=== PATIENT | female | born 1940 | race Caucasian/White ===

== ENCOUNTER 2021-09-08 17:59 | Inpatient (IN) | payer OTHER ==
[~2021-09-08] VITALS: Ht 152.4 cm; Wt 79.8 kg
[2021-09-08] MEDS: PANTOPRAZOLE SODIUM 40 MG/VIAL (PROTONIX) IVP SCH (00:54)
[2021-09-08 18:04] VITALS: BP_SYST 141
--- NOTE | 2021-09-08 18:11 | NUR ---
PT BIB FAMILY FROM [facility] FOR LOWER MID ABD PAIN RADIATING TOWARDS BACK SINCE THIS AM W/ N/V X 1. PT DENIES ANY PAINFUL URINATION OR FEVERS. PT IS AMBULATORY, AAOX4, VSS
--- NOTE | 2021-09-08 18:11 | NUR ---
PT TRIAGED AND PLACED IN ED LOBBY FOR AVAILABLE BED IN MAIN ED, MADE AWARE OF MSE NEEDS. PT PROVIDED WITH SPECIMEN CUP FOR URINE SAMPLE
[2021-09-08 19:40] LABS: BASOPHILS # (AUTO) 0.1 K/uL (0.0-0.2); BASOPHILS % (AUTO) 0.7 % (0.0-2.0); EOSINOPHILS # (AUTO) 0.1 K/uL (0.0-0.4); EOSINOPHILS % (AUTO) 1.5 % (0.0-4.0); HEMATOCRIT 34.3 % (36-48); HEMOGLOBIN 11.5 g/dL (12.0-16.0); LYMPHOCYTES # (AUTO) 1.5 K/uL (1.0-5.5); LYMPHOCYTES % (AUTO) 17.3 % (20.5-51.5); MEAN CORPUSCULAR HEMOGLOBIN 31 pg (27-31); MEAN CORPUSCULAR HGB CONC 33 % (32-36); MEAN CORPUSCULAR VOLUME 92 fL (79.0-98.0); MONOCYTES # (AUTO) 1.1 K/uL (0.0-1.0); MONOCYTES % (AUTO) 12.9 % (1.7-9.3); NEUTROPHILS # (AUTO) 5.8 K/uL (1.8-7.7); NEUTROPHILS % (AUTO) 67.6 % (40.0-70.0); PLATELET COUNT (AUTO) 189 K/uL (130-430); RED BLOOD CELL COUNT(AUTO) 3.75 MIL/uL (4.2-6.2); RED CELL DISTRIBUTION WIDTH 15.5 % (9.0-15.0); WHITE BLOOD COUNT (AUTO) 8.6 K/uL (4.8-10.8)
[2021-09-08 20:09] LABS: ANION GAP 10 (5-15); CALCIUM 9.4 mg/dL (8.4-11.0); CHLORIDE 100 mmol/L (98-107); CREATININE 2.02 mg/dL (0.55-1.30); GLUCOSE 160 mg/dL (70-99); POTASSIUM 3.9 mmol/L (3.5-5.1); SODIUM SERUM 138 mmol/L (136-145); UREA NITROGEN, BLOOD 63 mg/dL (8-21)
[2021-09-08 20:16] LABS: ALANINE AMINOTRANSFERASE 20 U/L (12-78); ALBUMIN 2.7 g/dL (3.4-4.8); ASPARTATE AMINOTRANSFERASE 35 U/L (10-37)
[2021-09-08 20:22] LABS: PROTHROMBIN TIME 10.3 SECS (9.5-12.5)
[2021-09-08 20:39] LABS: TOTAL BILIRUBIN 0.8 mg/dL (0.0-1.0)
[2021-09-08] MEDS ORDERED: PANTOPRAZOLE SODIUM 40 MG/VIAL (PROTONIX) IVP ONE (21:45)
[2021-09-08] MEDS ORDERED: PANTOPRAZOLE SODIUM 40 MG in NS 50 ML IV SCH (21:45)
--- NOTE | 2021-09-08 22:43 | NUR ---
PT IN BED WITH RAIL UP AND BED LOCKED. PT VS ARE WITHIN NORMAL LIMIT. PT IS AOX1 NAME ONLY. WILL CONTINUE TO MONITOR
[2021-09-08] MEDS ORDERED: ALBUTEROL SULFATE 0.083% 2.5 MG/3 ML VIAL.NEB INH PRN (22:45)
[2021-09-08] MEDS ORDERED: ONDANSETRON HCL 4 MG/2 ML VIAL IVP PRN (22:45)
[2021-09-08] MEDS ORDERED: ACETAMINOPHEN 325 MG TABLET PO PRN (22:45)
[2021-09-08] MEDS: NACL 0.9% 1,000 ML IV SCH (23:08)
[2021-09-08] MEDS ORDERED: PANTOPRAZOLE SODIUM 40 MG/VIAL (PROTONIX) ONE (23:17)
[2021-09-08] MEDS ORDERED: HALOPERIDOL LACTATE 5 MG/ML VIAL IVP ONE (23:45)
[2021-09-08] MEDS ORDERED: DIPHENHYDRAMINE INJ 50 MG/ML VIAL IVP ONE (23:45)
[2021-09-08] MEDS ORDERED: LORazepam 2 MG/ML VIAL IVP ONE (23:45)
[2021-09-09] MEDS: MORPHINE 2 MG/ML INJ. SYRINGE IVP PRN ×2 (00:03→20:26)
--- NOTE | 2021-09-09 01:52 | NUR ---
PATIENT FOUND WITH BLOOD PRESSURE OF 80/51. DR. GUI ROSAS. WILL PLACE NEW ORDERS AND WILL BE CARRIED OUT. Addendum: 09/09/21 at 0157 by [email or web address] PRIMARY NURSE NOTIFIED
[2021-09-09] MEDS ORDERED: NALOXONE HCL 0.4 MG/ML AMP (NARCAN) IVP ONE (02:00)
[2021-09-09] MEDS ORDERED: PANTOPRAZOLE SODIUM 40 MG in NS 50 ML IV ONE (02:15)
--- NOTE | 2021-09-09 02:20 | NUR ---
# 20 gauge angiocath placed to RIGHT HAND. Use of asceptic technique. Opsite placed over site. Blood return noted. Flushed with 10 cc of normal saline. No evidence of infiltration noted. Patient tolerated well.
--- NOTE | 2021-09-09 02:36 | NUR ---
COVID SWAB OBTAINED AND SENT TO LAB
[2021-09-09 03:26] VITALS: BP_SYST 148
--- NOTE | 2021-09-09 03:59 | NUR ---
Patient will be admitted to care of Dr Main. Admitted to unit. Will go to room . Belongings list completed. Complete and up to date summary report printed. SBAR report called in and spoke with Tami MAS with opportunity for questions.
--- NOTE | 2021-09-09 03:59 | NUR ---
ADMIT NOTE Received pt from ER to the floor with a diagnosis of GI bLeed. Admission process initiated. patient oriented to pain management, safety and call light-teach back done. ELIZABETH
[2021-09-09 04:11] VITALS: BP_SYST 117
[2021-09-09] MEDS: NACL 0.9% 1,000 ML IV SCH (04:35)
--- NOTE | 2021-09-09 04:53 | NUR ---
admission, pictures, IVF Admit process done, inventory completed, wound pictures taken. IVF hung and infusing via left wrist, no s/sx of infiltration. Safety precaution in place
--- NOTE | 2021-09-09 05:05 | NUR ---
CONSULT: CONSULT CALLED FOR DR. GIRISH VAZQUEZ IS PEDIATRICS PHYSICIAN THIS MORNING I SPOKE TO [id number] REASON FOR CONSULT: GI BLEEDING REQUESTING CONSULT: DR. STERN FITNESS PROFESSIONAL PHONE NUMBER: [phone]
[2021-09-09 08:28] VITALS: BP_SYST 134
[2021-09-09] MEDS: PANTOPRAZOLE SODIUM 40 MG/VIAL (PROTONIX) IVP SCH ×2 (09:16→20:17)
[2021-09-09] MEDS ORDERED: BENZOCAINE 20% 0.5mL UD SPRAY MM ONE (09:33)
[2021-09-09] MEDS: MIDAZOLAM HCL 5 MG/5 ML VIAL ONE ×3 (09:51→09:58)
[2021-09-09] MEDS: fentaNYL CITRATE/PF 100 MCG/2 ML AMP ONE ×3 (09:51→09:58)
[2021-09-09] MEDS ORDERED: PIPERACILLIN/TAZO 3.375/DEX-IS 50 ML IV SCH (10:00)
[2021-09-09 11:32] VITALS: BP_SYST 120
[2021-09-09] MEDS: SUCRALFATE 1 GM/10 ML UDC GT SCH ×3 (12:08→20:17)
[2021-09-09 13:48] LABS: BASOPHILS # (AUTO) 0.1 K/uL (0.0-0.2); BASOPHILS % (AUTO) 0.8 % (0.0-2.0); EOSINOPHILS # (AUTO) 0.3 K/uL (0.0-0.4); EOSINOPHILS % (AUTO) 3.3 % (0.0-4.0); HEMATOCRIT 32.3 % (36-48); LYMPHOCYTES # (AUTO) 1.9 K/uL (1.0-5.5); LYMPHOCYTES % (AUTO) 24.3 % (20.5-51.5); MEAN CORPUSCULAR HEMOGLOBIN 31 pg (27-31); MEAN CORPUSCULAR HGB CONC 34 % (32-36); MEAN CORPUSCULAR VOLUME 92 fL (79.0-98.0); MONOCYTES % (AUTO) 12.1 % (1.7-9.3); NEUTROPHILS # (AUTO) 4.8 K/uL (1.8-7.7); NEUTROPHILS % (AUTO) 59.5 % (40.0-70.0); PLATELET COUNT (AUTO) 165 K/uL (130-430); RED BLOOD CELL COUNT(AUTO) 3.51 MIL/uL (4.2-6.2); RED CELL DISTRIBUTION WIDTH 15.8 % (9.0-15.0)
[2021-09-09 14:08] LABS: ALANINE AMINOTRANSFERASE 16 U/L (12-78); ALBUMIN 2.6 g/dL (3.4-4.8); ANION GAP 9 (5-15); ASPARTATE AMINOTRANSFERASE 29 U/L (10-37); CALCIUM 8.6 mg/dL (8.4-11.0); CHLORIDE 105 mmol/L (98-107); CREATININE 2.08 mg/dL (0.55-1.30); GLUCOSE 113 mg/dL (70-99); POTASSIUM 3.6 mmol/L (3.5-5.1); SODIUM SERUM 140 mmol/L (136-145); TOTAL BILIRUBIN 0.9 mg/dL (0.0-1.0); UREA NITROGEN, BLOOD 63 mg/dL (8-21)
[2021-09-09 15:24] VITALS: BP_SYST 141
--- NOTE | 2021-09-09 19:20 | NUR ---
OPENING NOTE REPORT RECEIVED FROM DAYSHIFT NURSE. PATIENT RECEIVED LYING IN BED, EYES CLOSED, RESTING, NO S/S OF ACUTE DISTRESS NOTED. BREATHING EVEN AND UNLABORED. HOB RAISED, NASAL CANULA ON PROPERLY, ON 2L OF OXYGEN. IVF INFUSING WELL, IV SITE PATENT, NO SIGNS OF INFILTRATION OR INFECTION NOTED. CALL LIGHT WITH PATIENT. BED ALARM ON. BED IS LOCKED AND AT LOWEST POSITION. WILL CONTINUE TO MONITOR.
[2021-09-09 20:00] VITALS: BP_SYST 124
[2021-09-10 00:07] VITALS: BP_SYST 132
[2021-09-10] MEDS: NACL 0.9% 1,000 ML IV SCH ×2 (04:59→18:46)
[2021-09-10] MEDS: SUCRALFATE 1 GM/10 ML UDC GT SCH (06:08)
--- NOTE | 2021-09-10 06:29 | NUR ---
CLOSING NOTE PATIENT IN BED, RESTING, NO S/S OF ACUTE DISTRESS NOTED. BREATHING EVEN AND UNLABORED. HOB RAISED. NASAL CANULA ATTACHED PROPERLY, ON 2L OF OXYGEN. IVF INFUSING WELL, IV SITE PATENT, NO SIGNS OF INFILTRATION OR INFECTION NOTED. ALL NEEDS MET THROUGHOUT SHIFT. FALL, SAFETY PRECAUTIONS MAINTAINED THROUGHOUT SHIFT. WILL CONTINUE TO MONITOR UNTIL PATIENT CARE IS ENDORSED TO ONCOMING DAYSHIFT NURSE.
--- NOTE | 2021-09-10 07:23 | NUR ---
OPENING NOTE RECEIVED SBAR FROM NIGHT RN. PATIENT IN BED RESPIRATIONS EVEN NON LABORED BED IN LOW AND LOCKED POSITION CALL LIGHT WITHIN REACH. BED ALARM ON
[2021-09-10 08:00] VITALS: BP_SYST 130
[2021-09-10] MEDS: PANTOPRAZOLE SODIUM 40 MG/VIAL (PROTONIX) IVP SCH ×2 (08:30→21:09)
--- NOTE | 2021-09-10 08:30 | NUR ---
incontinence care incontinence of bladder, provided christo care, changed linens, repositioned.
--- NOTE | 2021-09-10 09:43 | NUR ---
MD DR STERN BEDSIDE EXAMINING PATIENT
--- NOTE | 2021-09-10 11:30 | NUR ---
incontinence care incontinence of bladder, provided christo care, changed linens, repositioned.
[2021-09-10 12:00] VITALS: BP_SYST 126
[2021-09-10] MEDS ORDERED: SUCRALFATE 1 GM/10 ML UDC PO ONE (12:00)
--- NOTE | 2021-09-10 12:32 | NUR ---
nurse note patient in bed,removes nasal canula. educated patient regarding the indications of O2. patient did not respond. Reapplied nasal canula.
--- NOTE | 2021-09-10 13:38 | NUR ---
incontinence care incontinence of bladder, provided christo care, changed linens, repositioned.
[2021-09-10] MEDS ORDERED: NOR10 PO (15:36)
[2021-09-10] MEDS ORDERED: CHLO50TA PO (15:36)
[2021-09-10] MEDS ORDERED: LIP20 PO (15:36)
[2021-09-10] MEDS ORDERED: HYDR200T80 PO (15:36)
[2021-09-10] MEDS ORDERED: CARV12.548 PO (15:36)
[2021-09-10] MEDS ORDERED: LOSA100T3 PO (15:36)
[2021-09-10] MEDS ORDERED: MEGE20TA3 PO (15:36)
[2021-09-10] MEDS ORDERED: METF-518 PO (15:36)
[2021-09-10] MEDS ORDERED: LORA-259 PO (15:36)
[2021-09-10] MEDS ORDERED: ASA81 PO (15:36)
--- NOTE | 2021-09-10 15:37 | NUR ---
incontinence care incontinence of bladder, provided christo care, changed linens, repositioned.
[2021-09-10 16:00] VITALS: BP_SYST 132
[2021-09-10] MEDS: SUCRALFATE 1 GM/10 ML UDC PO SCH ×2 (17:22→21:09)
--- NOTE | 2021-09-10 17:29 | NUR ---
IV PATIENT REMOVED RT AC IV. CATHETER INTACT. NO BLEEDING
--- NOTE | 2021-09-10 19:39 | NUR ---
closing note Provided SBAR to night RN. Patient in bed, respirations even, non labored. Bed in low and locked position call light within reach. Bed alarm on. Endorsed care to night RN
[2021-09-10 21:00] VITALS: BP_SYST 135
--- NOTE | 2021-09-10 22:15 | NUR ---
Patient awake due medications given , patient kept upright position skin dry warm Respirations Regular also unlabored call desir given to patient .
[2021-09-11] VITALS: BP_SYST 140
--- NOTE | 2021-09-11 04:37 | NUR ---
HOURLY ROUNDING patient Resting is verbally Responsive assist for position change off loading with pillows no SOB activity tolerated .
[2021-09-11] MEDS: SUCRALFATE 1 GM/10 ML UDC PO SCH ×2 (06:20→22:05)
--- NOTE | 2021-09-11 08:00 | NUR ---
NOTES PATIENT ALERT AWAKE X 2. BUT CONFUSED. LUNGS BILATERALLY CLEAR BUT DIMINISHED AT THE BASES. ABDOMEN SOFT AND NON DISTENDED. HAS IV ACCESS ON THE LEFT WRIST #20 WITH NS AT 55CC/HR INFUSING ON WELL. HAS RT AC #22. SALINE LOCKED PATENT/DRY. WILL CONTINUE TO MONITOR
[2021-09-11 08:24] VITALS: BP_SYST 119
[2021-09-11] MEDS: PANTOPRAZOLE SODIUM 40 MG/VIAL (PROTONIX) IVP SCH ×2 (08:56→22:02)
--- NOTE | 2021-09-11 09:30 | NUR ---
DUE MEDS GIVEN.
--- NOTE | 2021-09-11 12:00 | NUR ---
ASSISTS ON ADLS. TURN TO SIDES.
[2021-09-11 12:35] VITALS: BP_SYST 117
--- NOTE | 2021-09-11 16:00 | NUR ---
DADA CARE AND HYGIENE DONE.
[2021-09-11 16:54] VITALS: BP_SYST 127
--- NOTE | 2021-09-11 18:26 | NUR ---
HOURLY ROUNDING DONE. PATIENT NEEDS TO BE FED. MADE COMFORTABLE.
[2021-09-11 19:00] VITALS: BP_SYST 142
[2021-09-11 20:00] VITALS: BP_SYST 142
[2021-09-11] MEDS: NACL 0.9% 1,000 ML IV SCH (20:19)
[2021-09-12] MEDS: SUCRALFATE 1 GM/10 ML UDC PO SCH ×2 (07:25→13:07)
--- NOTE | 2021-09-12 08:00 | NUR ---
NOTES PATIENT ALERT AWAKE X 1 CONFUSED. LUNGS BILATERALLY CLEAR BUT DIMINISHED AT THE BASES. ABDOMEN SOFT AND NON DISTENDED. INCONTINENT OF URINE AND BOWEL. HAS IV ACCESS ON THE LEFT FOREARM #22. WITH NS AT 55CC/HR INFUSING ON WELL. WILL CONTINUE TO MONITOR.
[2021-09-12 08:32] VITALS: BP_SYST 122
[2021-09-12] MEDS: PANTOPRAZOLE SODIUM 40 MG/VIAL (PROTONIX) IVP SCH (08:41)
--- NOTE | 2021-09-12 09:00 | NUR ---
DUE MEDS GIVEN.
[2021-09-12 09:25] VITALS: BP_SYST 122
--- NOTE | 2021-09-12 11:00 | NUR ---
TURN TO SIDES. MADE COMFORTABLE. DADA CARE AND HYGIENE CARE DONE.
[2021-09-12 11:06] VITALS: BP_SYST 122
[2021-09-12 13:08] LABS: BASOPHILS # (AUTO) 0.1 K/uL (0.0-0.2); BASOPHILS % (AUTO) 0.9 % (0.0-2.0); EOSINOPHILS # (AUTO) 0.1 K/uL (0.0-0.4); EOSINOPHILS % (AUTO) 1.3 % (0.0-4.0); HEMOGLOBIN 12.3 g/dL (12.0-16.0); LYMPHOCYTES # (AUTO) 0.9 K/uL (1.0-5.5); LYMPHOCYTES % (AUTO) 13.6 % (20.5-51.5); MEAN CORPUSCULAR HEMOGLOBIN 31 pg (27-31); MEAN CORPUSCULAR HGB CONC 33 % (32-36); MEAN CORPUSCULAR VOLUME 93 fL (79.0-98.0); MONOCYTES # (AUTO) 1.2 K/uL (0.0-1.0); NEUTROPHILS # (AUTO) 4.6 K/uL (1.8-7.7); NEUTROPHILS % (AUTO) 67.2 % (40.0-70.0); PLATELET COUNT (AUTO) 148 K/uL (130-430); RED CELL DISTRIBUTION WIDTH 15.9 % (9.0-15.0); WHITE BLOOD COUNT (AUTO) 6.9 K/uL (4.8-10.8)
[2021-09-12 15:51] VITALS: BP_SYST 117
--- NOTE | 2021-09-12 16:00 | NUR ---
CALLED [facility] AND SPOKE TO RIMA REGARDING IF THEY HAVE AVAILABLE TRANSPORT TO RAIL EQUIPMENT OPERATOR PER REQUEST OF RICK CORONA SON OF THE PATIENT. BUT UNFORTUNATELY THEY DONT HAVE AVAILABLE TRANSPORT TO PICK THE PATIENT AT THIS TIME.
--- NOTE | 2021-09-12 16:13 | NUR ---
CALLED RICK CORONA SON OF THE PATIENT AND WILL PICK THE PATIENT AT 1700PM TODAY.
--- NOTE | 2021-09-12 17:00 | NUR ---
AWAITING FOR THE SON TO COME AND KNOCKUP WORKER THE MOM.
--- NOTE | 2021-09-12 17:01 | NUR ---
DISCHARGE PACKET PRINTED. AWAITING FOR THE SON TO COME AND SIGNED IT. [facility] I D BAND REMOVED. TEAM PRIMARY CARE PHYSICIAN REMOVED. DIAPER PLACED ON. PLACED NON SKID SOCKS ON BOTH FEET. WILL CONTINUE TO MONITOR
--- NOTE | 2021-09-12 17:10 | NUR ---
PLACED ON DIAPER. LEFT MIDDLE TOE PLACED A POVIDONE AND PLACED SOCKS ON BOTH FEET.
--- NOTE | 2021-09-12 17:40 | NUR ---
PATIENT LEFT IN STABLE CONDITION WITH TWO RESPIRATORY THERAPIST HELPING TO TRANSFER THE PATIENT TO THE WHEELCHAIR. RICK SON CAME AND GENERAL UTILITY MACHINE OPERATOR THE PATIENT. DISCHARGE SUMMARY SIGNED BY THE SON. DISCHARGE INSTRUCTION GIVEN TO THE SON THAT [facility] WILL ARRANGED FOR THE VISIT FOR MEDICATION RECONCILIATION. AND FOLLOW UP CARE WITH THE PCP IN ONE WEEK. WILL CONTINUE TO MONITOR
== END 2021-09-12 17:40 | disposition home health service (06) | DRG 378 ==
LOC: SED 17:59 → SMU 22:34 → STU 09-09 03:56
PROVIDERS: ADMIT Internal Medicine Hospice and Palliative Medicine; ATTEND Internal Medicine Hospice and Palliative Medicine
PROC: 0DB68ZX Excision of Stomach, Via Natural or Artificial Opening Endoscopic, Diagnostic (ICD-10-PCS; principal; 2021-09-09 09:45)
DX: K25.0 Acute gastric ulcer with hemorrhage (principal); E44.0 Moderate protein-calorie malnutrition; R65.10 Systemic inflammatory response syndrome (SIRS) of non-infectious origin without acute organ dysfunction; K92.2 Gastrointestinal hemorrhage, unspecified; Z20.822 Contact with and (suspected) exposure to COVID-19; I10 Essential (primary) hypertension; F03.90 Unspecified dementia, unspecified severity, without behavioral disturbance, psychotic disturbance, mood disturbance, and anxiety; E11.9 Type 2 diabetes mellitus without complications; Z79.4 Long term (current) use of insulin; N18.30 Chronic kidney disease, stage 3 unspecified; K26.0 Acute duodenal ulcer with hemorrhage
CPT/HCPCS: 36415; 43239; 76376; 80053; 82962; 83605; 85025; 85610-TC; 86886; 86900; 86901; 86920; 87081; 88305; 88312; 88313; 96374; 96375; 99285; C9113; G0378; J1200; J1630; J2060; J2250; J2270; J2310; J2405; J3010

== ENCOUNTER 2021-09-20 23:11 | Inpatient (IN) | payer OTHER ==
[~2021-09-20] VITALS: Ht 167.6 cm; Wt 72.6 kg
[~2021-09-20 23:11] MED LIST: ASA81 PO; CARV12.548 PO; CHLO50TA PO; HYDR200T80 PO; LIP20 PO; LORA-259 PO; LOSA100T3 PO; MEGE20TA3 PO; METF-518 PO; NOR10 PO
[2021-09-20 23:31] VITALS: BP_SYST 111
[2021-09-21 00:23] LABS: BASOPHILS # (AUTO) 0.1 K/uL (0.0-0.2); BASOPHILS % (AUTO) 0.7 % (0.0-2.0); EOSINOPHILS # (AUTO) 0.1 K/uL (0.0-0.4); EOSINOPHILS % (AUTO) 1.3 % (0.0-4.0); HEMATOCRIT 30.5 % (36-48); HEMOGLOBIN 10.4 g/dL (12.0-16.0); LYMPHOCYTES # (AUTO) 0.9 K/uL (1.0-5.5); LYMPHOCYTES % (AUTO) 8.8 % (20.5-51.5); MEAN CORPUSCULAR HEMOGLOBIN 32 pg (27-31); MEAN CORPUSCULAR HGB CONC 34 % (32-36); MEAN CORPUSCULAR VOLUME 93 fL (79.0-98.0); MONOCYTES # (AUTO) 1.4 K/uL (0.0-1.0); MONOCYTES % (AUTO) 12.9 % (1.7-9.3); NEUTROPHILS # (AUTO) 8.2 K/uL (1.8-7.7); NEUTROPHILS % (AUTO) 76.3 % (40.0-70.0); PLATELET COUNT (AUTO) 164 K/uL (130-430); RED BLOOD CELL COUNT(AUTO) 3.29 MIL/uL (4.2-6.2); RED CELL DISTRIBUTION WIDTH 16.1 % (9.0-15.0); WHITE BLOOD COUNT (AUTO) 10.7 K/uL (4.8-10.8)
[2021-09-21 00:28] LABS: ANION GAP 7 (5-15); CALCIUM 8.8 mg/dL (8.4-11.0); CHLORIDE 105 mmol/L (98-107); GLUCOSE 155 mg/dL (70-99); POTASSIUM 3.7 mmol/L (3.5-5.1); SODIUM SERUM 142 mmol/L (136-145); UREA NITROGEN, BLOOD 22 mg/dL (8-21)
[2021-09-21 00:36] LABS: ALANINE AMINOTRANSFERASE 16 U/L (12-78); ALBUMIN 2.2 g/dL (3.4-4.8); ASPARTATE AMINOTRANSFERASE 25 U/L (10-37); TOTAL BILIRUBIN 1.4 mg/dL (0.0-1.0)
[2021-09-21 00:39] LABS: ALCOHOL, BLOOD < 3 mg/dL (<10)
[2021-09-21 02:17] LABS: BILIRUBIN,URINE NEGATIVE (NEGATIVE); CLARITY/URINE CLEAR (CLEAR); COLOR,URINE YELLOW (YELLOW); GLUCOSE,URINE NEGATIVE (NEGATIVE); KETONES,URINE NEGATIVE (NEGATIVE); LEUKOCYTE ESTERASE ,URINE TRACE (NEGATIVE); NITRITE, URINE NEGATIVE (NEGATIVE); PROTEIN URINE TRACE (NEGATIVE); UROBILINOGEN,URINE 0.2 (0.2-1.0)
[2021-09-21 02:19] LABS: BLOOD, URINE TRACE (NEGATIVE)
[2021-09-21 02:59] LABS: BACTERIA,URINE FEW /HPF (None Seen)
[2021-09-21 03:00] LABS: MUCUS,URINE None Seen /LPF (None Seen)
[2021-09-21] MEDS ORDERED: cefTRIAXone 1 GM in D5W 50 ML IV ONE (03:45)
[2021-09-21] MEDS ORDERED: cefTRIAXone 1 GM VIAL ONE (04:06)
[2021-09-21] MEDS ORDERED: NACL 0.9% 1,000 ML IV ONE (04:15)
[2021-09-21] MEDS ORDERED: LIDOCAINE 1% 10 MG/ML, 20 ML MDV INJ ONE (06:15)
[2021-09-21 12:40] VITALS: BP_SYST 117
[2021-09-21 13:10] VITALS: BP_SYST 117
[2021-09-21 16:27] VITALS: BP_SYST 122
[2021-09-22 00:27] VITALS: BP_SYST 121
[2021-09-22 05:06] VITALS: BP_SYST 119
[2021-09-22 08:15] VITALS: BP_SYST 112
[2021-09-22 08:16] LABS: ANION GAP 8 (5-15); CALCIUM 8.7 mg/dL (8.4-11.0); CHLORIDE 106 mmol/L (98-107); CREATININE 1.01 mg/dL (0.55-1.30); GLUCOSE 116 mg/dL (70-99); POTASSIUM 3.3 mmol/L (3.5-5.1); SODIUM SERUM 143 mmol/L (136-145); UREA NITROGEN, BLOOD 19 mg/dL (8-21)
[2021-09-22 08:24] LABS: ALANINE AMINOTRANSFERASE 16 U/L (12-78); ALBUMIN 2.2 g/dL (3.4-4.8); ASPARTATE AMINOTRANSFERASE 29 U/L (10-37); TOTAL BILIRUBIN 1.1 mg/dL (0.0-1.0)
[2021-09-22] MEDS ORDERED: ASPIRIN 81 MG TAB.CHEW PO ONE (09:30)
[2021-09-22] MEDS ORDERED: PANTOPRAZOLE SODIUM 40 MG TAB PO ONE (10:00)
[2021-09-22] MEDS ORDERED: HYDROXYCHLOROQUINE SULFATE 200 MG TABLET PO ONE (10:30)
[2021-09-22 16:20] VITALS: BP_SYST 108
[2021-09-22] MEDS: LOSARTAN POTASSIUM 50 MG TABLET (COZAAR) PO SCH (18:00)
[2021-09-22] MEDS: CARVEDILOL 12.5 MG TABLET (COREG) PO SCH (18:00)
[2021-09-22] MEDS: SULFAMETHOXAZOLE/TRIMETHOPR DS 1 TABLET PO SCH (21:00)
[2021-09-22] MEDS: PANTOPRAZOLE SODIUM 40 MG TAB PO SCH (21:00)
[2021-09-22] MEDS: ATORVASTATIN 20 MG TABLET PO SCH (21:00)
[2021-09-23 00:28] VITALS: BP_SYST 119
[2021-09-23 01:29] LABS: ANION GAP 7 (5-15); CALCIUM 9.6 mg/dL (8.4-11.0); CHLORIDE 107 mmol/L (98-107); CREATININE 1.04 mg/dL (0.55-1.30); GLUCOSE 105 mg/dL (70-99); POTASSIUM 3.4 mmol/L (3.5-5.1); SODIUM SERUM 143 mmol/L (136-145); UREA NITROGEN, BLOOD 19 mg/dL (8-21)
[2021-09-23 06:36] VITALS: BP_SYST 120
[2021-09-23 07:07] LABS: BASOPHILS # (AUTO) 0.1 K/uL (0.0-0.2); BASOPHILS % (AUTO) 0.7 % (0.0-2.0); EOSINOPHILS # (AUTO) 0.3 K/uL (0.0-0.4); EOSINOPHILS % (AUTO) 2.9 % (0.0-4.0); HEMATOCRIT 29.5 % (36-48); LYMPHOCYTES # (AUTO) 1.1 K/uL (1.0-5.5); LYMPHOCYTES % (AUTO) 12.3 % (20.5-51.5); MEAN CORPUSCULAR HEMOGLOBIN 32 pg (27-31); MEAN CORPUSCULAR HGB CONC 34 % (32-36); MEAN CORPUSCULAR VOLUME 94 fL (79.0-98.0); MONOCYTES # (AUTO) 1.1 K/uL (0.0-1.0); MONOCYTES % (AUTO) 12.6 % (1.7-9.3); NEUTROPHILS # (AUTO) 6.4 K/uL (1.8-7.7); NEUTROPHILS % (AUTO) 71.5 % (40.0-70.0); PLATELET COUNT (AUTO) 187 K/uL (130-430); RED BLOOD CELL COUNT(AUTO) 3.15 MIL/uL (4.2-6.2); WHITE BLOOD COUNT (AUTO) 8.9 K/uL (4.8-10.8)
[2021-09-23 07:50] LABS: ANION GAP 10 (5-15); CALCIUM 9.6 mg/dL (8.4-11.0); CHLORIDE 107 mmol/L (98-107); GLUCOSE 99 mg/dL (70-99); POTASSIUM 3.4 mmol/L (3.5-5.1); SODIUM SERUM 145 mmol/L (136-145); UREA NITROGEN, BLOOD 18 mg/dL (8-21)
[2021-09-23] MEDS: SULFAMETHOXAZOLE/TRIMETHOPR DS 1 TABLET PO SCH ×2 (08:50→20:31)
[2021-09-23] MEDS: PANTOPRAZOLE SODIUM 40 MG TAB PO SCH ×2 (08:50→20:31)
[2021-09-23] MEDS: ASPIRIN 81 MG TAB.CHEW PO SCH (08:50)
[2021-09-23] MEDS: HYDROXYCHLOROQUINE SULFATE 200 MG TABLET PO SCH (09:00)
[2021-09-23 10:09] VITALS: BP_SYST 140
[2021-09-23 12:09] VITALS: BP_SYST 134
[2021-09-23 16:09] VITALS: BP_SYST 131
[2021-09-23] MEDS: CARVEDILOL 12.5 MG TABLET (COREG) PO SCH (17:09)
[2021-09-23] MEDS: LOSARTAN POTASSIUM 50 MG TABLET (COZAAR) PO SCH (17:10)
[2021-09-23] MEDS ORDERED: POTASSIUM CHLORIDE 20 MEQ/PKT PACKET PO ONE (18:45)
[2021-09-23] MEDS: ATORVASTATIN 20 MG TABLET PO SCH (20:31)
[2021-09-24 00:47] VITALS: BP_SYST 116
[2021-09-24 08:00] VITALS: BP_SYST 126
[2021-09-24] MEDS: ASPIRIN 81 MG TAB.CHEW PO SCH (10:25)
[2021-09-24] MEDS: SULFAMETHOXAZOLE/TRIMETHOPR DS 1 TABLET PO SCH ×2 (10:25→22:08)
[2021-09-24] MEDS: ISOSORBIDE MONONITRATE 30 MG TAB.ER.24H PO SCH (10:26)
[2021-09-24] MEDS: PANTOPRAZOLE SODIUM 40 MG TAB PO SCH ×2 (10:26→22:07)
[2021-09-24] MEDS: HYDROXYCHLOROQUINE SULFATE 200 MG TABLET PO SCH (10:38)
[2021-09-24 12:27] VITALS: BP_SYST 126
[2021-09-24 16:00] VITALS: BP_SYST 125
[2021-09-24] MEDS: CARVEDILOL 12.5 MG TABLET (COREG) PO SCH (18:39)
[2021-09-24] MEDS: LOSARTAN POTASSIUM 50 MG TABLET (COZAAR) PO SCH (18:39)
[2021-09-24 20:00] VITALS: BP_SYST 121
[2021-09-24] MEDS: ATORVASTATIN 20 MG TABLET PO SCH (22:07)
[2021-09-25 01:13] VITALS: BP_SYST 142
[2021-09-25 06:28] LABS: BASOPHILS # (AUTO) 0.1 K/uL (0.0-0.2); BASOPHILS % (AUTO) 1.5 % (0.0-2.0); EOSINOPHILS # (AUTO) 0.7 K/uL (0.0-0.4); EOSINOPHILS % (AUTO) 7.6 % (0.0-4.0); HEMATOCRIT 28.7 % (36-48); HEMOGLOBIN 9.7 g/dL (12.0-16.0); LYMPHOCYTES # (AUTO) 1.7 K/uL (1.0-5.5); LYMPHOCYTES % (AUTO) 19.2 % (20.5-51.5); MEAN CORPUSCULAR HEMOGLOBIN 32 pg (27-31); MEAN CORPUSCULAR HGB CONC 34 % (32-36); MEAN CORPUSCULAR VOLUME 94 fL (79.0-98.0); MONOCYTES # (AUTO) 0.9 K/uL (0.0-1.0); MONOCYTES % (AUTO) 9.9 % (1.7-9.3); NEUTROPHILS # (AUTO) 5.6 K/uL (1.8-7.7); NEUTROPHILS % (AUTO) 61.8 % (40.0-70.0); PLATELET COUNT (AUTO) 235 K/uL (130-430); RED BLOOD CELL COUNT(AUTO) 3.05 MIL/uL (4.2-6.2); RED CELL DISTRIBUTION WIDTH 16.3 % (9.0-15.0); WHITE BLOOD COUNT (AUTO) 9.1 K/uL (4.8-10.8)
[2021-09-25 08:00] VITALS: BP_SYST 120
[2021-09-25] MEDS: ASPIRIN 81 MG TAB.CHEW PO SCH (09:41)
[2021-09-25] MEDS: SULFAMETHOXAZOLE/TRIMETHOPR DS 1 TABLET PO SCH ×2 (09:41→21:43)
[2021-09-25] MEDS: HYDROXYCHLOROQUINE SULFATE 200 MG TABLET PO SCH (09:41)
[2021-09-25] MEDS: PANTOPRAZOLE SODIUM 40 MG TAB PO SCH ×2 (09:42→21:43)
[2021-09-25] MEDS: ISOSORBIDE MONONITRATE 30 MG TAB.ER.24H PO SCH (09:42)
[2021-09-25] MEDS ORDERED: ISOS30TA85 PO (10:22)
[2021-09-25] MEDS ORDERED: POTASSIUM CHLORIDE 20 MEQ/PKT PACKET PO ONE (10:30)
[2021-09-25 12:30] VITALS: BP_SYST 108
[2021-09-25 16:41] VITALS: BP_SYST 115
[2021-09-25] MEDS: CARVEDILOL 12.5 MG TABLET (COREG) PO SCH (17:22)
[2021-09-25] MEDS: LOSARTAN POTASSIUM 50 MG TABLET (COZAAR) PO SCH (17:22)
[2021-09-25 20:00] VITALS: BP_SYST 114
[2021-09-25] MEDS: ATORVASTATIN 20 MG TABLET PO SCH (21:43)
[2021-09-26] VITALS (8 sets, daily range): BP systolic 101–114
[2021-09-26] MEDS: PANTOPRAZOLE SODIUM 40 MG TAB PO SCH ×2 (08:38→20:53)
[2021-09-26] MEDS: ASPIRIN 81 MG TAB.CHEW PO SCH (08:38)
[2021-09-26] MEDS: ISOSORBIDE MONONITRATE 30 MG TAB.ER.24H PO SCH (08:38)
[2021-09-26] MEDS: HYDROXYCHLOROQUINE SULFATE 200 MG TABLET PO SCH (08:38)
[2021-09-26] MEDS: SULFAMETHOXAZOLE/TRIMETHOPR DS 1 TABLET PO SCH ×2 (08:38→20:54)
[2021-09-26] MEDS ORDERED: POTASSIUM CHLORIDE 20 MEQ TAB.PRT.SR PO ONE (10:00)
[2021-09-26] MEDS: CARVEDILOL 12.5 MG TABLET (COREG) PO SCH (17:33)
[2021-09-26] MEDS: LOSARTAN POTASSIUM 50 MG TABLET (COZAAR) PO SCH (17:37)
[2021-09-26] MEDS: ATORVASTATIN 20 MG TABLET PO SCH (20:53)
[2021-09-27 08:00] VITALS: BP_SYST 108
[2021-09-27] MEDS: ASPIRIN 81 MG TAB.CHEW PO SCH (09:23)
[2021-09-27] MEDS: HYDROXYCHLOROQUINE SULFATE 200 MG TABLET PO SCH (09:24)
[2021-09-27] MEDS: ISOSORBIDE MONONITRATE 30 MG TAB.ER.24H PO SCH (09:24)
[2021-09-27] MEDS: SULFAMETHOXAZOLE/TRIMETHOPR DS 1 TABLET PO SCH (09:24)
[2021-09-27] MEDS: PANTOPRAZOLE SODIUM 40 MG TAB PO SCH ×2 (09:24→20:26)
[2021-09-27 12:00] VITALS: BP_SYST 109
[2021-09-27 16:00] VITALS: BP_SYST 107
[2021-09-27] MEDS: LOSARTAN POTASSIUM 50 MG TABLET (COZAAR) PO SCH (18:00)
[2021-09-27] MEDS: CARVEDILOL 12.5 MG TABLET (COREG) PO SCH (18:41)
[2021-09-27 20:00] VITALS: BP_SYST 112
[2021-09-27] MEDS: ATORVASTATIN 20 MG TABLET PO SCH (20:26)
[2021-09-28 00:47] VITALS: BP_SYST 129
[2021-09-28 08:00] VITALS: BP_SYST 113
[2021-09-28] MEDS: ISOSORBIDE MONONITRATE 30 MG TAB.ER.24H PO SCH (10:49)
[2021-09-28] MEDS: HYDROXYCHLOROQUINE SULFATE 200 MG TABLET PO SCH (10:49)
[2021-09-28] MEDS: PANTOPRAZOLE SODIUM 40 MG TAB PO SCH ×2 (10:49→21:12)
[2021-09-28] MEDS: ASPIRIN 81 MG TAB.CHEW PO SCH (10:50)
[2021-09-28 12:00] VITALS: BP_SYST 118
[2021-09-28] MEDS ORDERED: POTASSIUM CHLORIDE 20 MEQ TAB.PRT.SR PO ONE (14:45)
[2021-09-28 17:40] VITALS: BP_SYST 115
[2021-09-28] MEDS: LOSARTAN POTASSIUM 50 MG TABLET (COZAAR) PO SCH (18:22)
[2021-09-28] MEDS: CARVEDILOL 12.5 MG TABLET (COREG) PO SCH (18:22)
[2021-09-28 19:30] VITALS: BP_SYST 126
[2021-09-28] MEDS: ATORVASTATIN 20 MG TABLET PO SCH (21:12)
[2021-09-29 00:15] VITALS: BP_SYST 119
[2021-09-29 12:00] VITALS: BP_SYST 104
[2021-09-29] MEDS: HYDROXYCHLOROQUINE SULFATE 200 MG TABLET PO SCH (14:50)
[2021-09-29] MEDS: ISOSORBIDE MONONITRATE 30 MG TAB.ER.24H PO SCH (14:50)
[2021-09-29] MEDS: ASPIRIN 81 MG TAB.CHEW PO SCH (14:50)
[2021-09-29] MEDS: PANTOPRAZOLE SODIUM 40 MG TAB PO SCH ×2 (14:51→22:48)
[2021-09-29 16:00] VITALS: BP_SYST 106
[2021-09-29] MEDS: CARVEDILOL 12.5 MG TABLET (COREG) PO SCH (17:45)
[2021-09-29] MEDS: LOSARTAN POTASSIUM 50 MG TABLET (COZAAR) PO SCH (17:45)
[2021-09-29] MEDS: ATORVASTATIN 20 MG TABLET PO SCH (22:49)
[2021-09-30 00:27] VITALS: BP_SYST 112
[2021-09-30 06:41] VITALS: BP_SYST 115
[2021-09-30 08:00] VITALS: BP_SYST 120
[2021-09-30] MEDS: PANTOPRAZOLE SODIUM 40 MG TAB PO SCH (10:58)
[2021-09-30] MEDS: ISOSORBIDE MONONITRATE 30 MG TAB.ER.24H PO SCH (10:58)
[2021-09-30] MEDS: ASPIRIN 81 MG TAB.CHEW PO SCH (10:58)
[2021-09-30] MEDS: HYDROXYCHLOROQUINE SULFATE 200 MG TABLET PO SCH (10:58)
[2021-09-30 12:00] VITALS: BP_SYST 118
[2021-09-30 14:54] VITALS: BP_SYST 115
[2021-09-30 14:56] VITALS: BP_SYST 111
== END 2021-09-30 23:39 | disposition hospice, inpatient (51) | DRG 70 ==
LOC: SED 23:11 → STU 09-21 06:33 → SMU 09-27 19:26
PROVIDERS: ADMIT Internal Medicine; ATTEND Internal Medicine
PROC: 0HQ0XZZ Repair Scalp Skin, External Approach (ICD-10-PCS; 2021-09-21)
PROC: 4A10X4Z Monitoring of Central Nervous Electrical Activity, External Approach (ICD-10-PCS; principal; 2021-09-23)
DX: G93.49 Other encephalopathy (principal); I21.9 Acute myocardial infarction, unspecified; N39.0 Urinary tract infection, site not specified; S01.91XA Laceration without foreign body of unspecified part of head, initial encounter; S01.01XA Laceration without foreign body of scalp, initial encounter; F03.90 Unspecified dementia, unspecified severity, without behavioral disturbance, psychotic disturbance, mood disturbance, and anxiety; E11.9 Type 2 diabetes mellitus without complications; Y99.8 Other external cause status; W18.39XA Other fall on same level, initial encounter; Z20.822 Contact with and (suspected) exposure to COVID-19; Y93.89 Activity, other specified; Y92.89 Other specified places as the place of occurrence of the external cause
CPT/HCPCS: 36415; 70450-TC; 71045; 72125-TC; 72131; 76376; 80048; 80053; 81000; 83880; 84484; 85025; 87081; 87086; 93005; 93306; 95816; 96361; 96365; 97110-GP; 97530-GP; 99285; G0378; G0482; J0696; J2001